=== PATIENT | male | born 1965 | race Caucasian/White ===

== ENCOUNTER 2020-08-22 | Emergency (ER) | payer OTHER ==
[2020-08-22] MEDS ORDERED: NAPROXEN500 MG PO (02:39)
== END 2020-08-22 02:54 | disposition home or self-care (01) ==
LOC: FER
DX: S43.421A Sprain of right rotator cuff capsule, initial encounter (principal); X50.0XXA Overexertion from strenuous movement or load, initial encounter; Y92.89 Other specified places as the place of occurrence of the external cause; Y99.0 Civilian activity done for income or pay
CPT/HCPCS: 73030